=== PATIENT | female | born 1960 | race Two or more races ===

== ENCOUNTER 2017-03-03 11:27 | Emergency (ER) | payer MEDICAID ==
[~2017-03-03] VITALS: Ht 167.6 cm; Wt 97.5 kg
[2017-03-03] MEDS ORDERED: ONDANSETRON HCL/PF 4 MG/2 ML VIAL ONE (12:06)
[2017-03-03] MEDS ORDERED: MORPHINE SULFATE INJ 4 MG/ML DISP.SYRIN ONE ×2 (12:08→13:01)
--- NOTE | 2017-03-03 12:29 | NUR ---
PT REC'D TO ER C/I PAIN LEFT SHOULDER FELL ASCHOOL FAMILY WITH PATIEN LABS AND IV DONE RT AC 20G IVP MEDS GIVEN PER MD ORDER AWAITING EVALUATION BY ER PROVIDER.
[2017-03-03] MEDS ORDERED: ONDANSETRON HCL/PF - ER 4 MG/2 ML VIAL IV ONE (12:30)
[2017-03-03] MEDS ORDERED: MORPHINE SULFATE INJ 2 MG/ML DISP.SYRIN IV ONE ×2 (12:30→13:00)
--- NOTE | 2017-03-03 13:39 | NUR ---
IV removed. Catheter intact and site benign. Pressure and 4x4 applied to site. No bleeding noted.PT. VERBALIZED UNDERSTANDING OF AFTERCARE INSTRUCTIONS.
[2017-03-03] MEDS ORDERED: oxyCODONE/APAP (5/325 MG) 1 UDTAB TABLET ONE (13:41)
[2017-03-03] MEDS ORDERED: IBUPROFEN 600 MG TABLET PO ONE ×2 (13:41→14:00)
[2017-03-03 13:58] VITALS: BP 125/74
[2017-03-03] MEDS ORDERED: oxyCODONE/APAP (5/325 MG) 1 UDTAB TABLET PO ONE (14:00)
== END 2017-03-03 14:00 | disposition home or self-care (01) ==
LOC: ER 11:30
DX: S42.292A Other displaced fracture of upper end of left humerus, initial encounter for closed fracture (principal); E11.9 Type 2 diabetes mellitus without complications; I10 Essential (primary) hypertension; W01.0XXA Fall on same level from slipping, tripping and stumbling without subsequent striking against object, initial encounter; Y92.89 Other specified places as the place of occurrence of the external cause; Y93.89 Activity, other specified; Y99.8 Other external cause status
CPT/HCPCS: 73030-TC; 73060-TC; A4606; J2270; J2405; Z7610

== ENCOUNTER 2022-08-26 19:03 | Inpatient (IN) | payer MEDICAID, OTHER ==
[~2022-08-26] VITALS: Ht 154.9 cm; Wt 73.9 kg
[2022-08-26 21:10] LABS: BASOPHILS # (AUTO) 0.1 K/uL (0.0-0.2); BASOPHILS % (AUTO) 0.9 % (0.0-2.0); HEMATOCRIT 33 % (33-45); HEMOGLOBIN 10.6 g/dL (11.5-14.8); LYMPHOCYTES # (AUTO) 4.2 K/uL (0.8-4.8); LYMPHOCYTES % (AUTO) 29.8 % (20.0-44.0); MEAN CORPUSCULAR HGB CONC 32 g/dl (31.0-36.0); MEAN CORPUSCULAR VOLUME 89 fL (82-100); MONOCYTES # (AUTO) 0.9 K/uL (0.1-1.30); MONOCYTES % (AUTO) 6.5 % (2.0-12.0); NEUTROPHILS # (AUTO) 8.5 K/uL (1.8-8.9); NEUTROPHILS % (AUTO) 60.8 % (43.0-81.0); PLATELET COUNT (AUTO) 293 K/uL (150-450); WHITE BLOOD COUNT (AUTO) 14.1 K/uL (4.3-11.0)
--- NOTE | 2022-08-26 21:12 | NUR ---
URINE COLLECTED AND SENT TO LAB
[2022-08-26] MEDS ORDERED: MORPHINE SULFATE INJ 4 MG/ML DISP.SYRIN ONE (21:17)
[2022-08-26] MEDS ORDERED: CEFTRIAXONE 1GM BAG (ER ONLY) 50 ML IV ONE (21:17)
[2022-08-26] MEDS ORDERED: METRONIDAZOLE 500MG/ NS 100ML 100 ML IV ONE (21:17)
[2022-08-26] MEDS ORDERED: ONDANSETRON HCL/PF 4 MG/2 ML VIAL ONE (21:17)
[2022-08-26 21:23] LABS: BILIRUBIN,URINE NEGATIVE (NEGATIVE); COLOR,URINE YELLOW (YELLOW); LEUKOCYTE ESTERASE ,URINE TRACE (NEGATIVE); NITRITE, URINE NEGATIVE (NEGATIVE); PROTEIN,URINE 2+ mg/dl (NEGATIVE); UGLUCOSE 3+ mg/dL (NEGATIVE); UROBILINOGEN,URINE 0.2 EU/dL (0.2)
[2022-08-26 21:28] LABS: ALANINE AMINOTRANSFERASE 30 U/L (12-78); ALKALINE PHOSPHATASE 114 U/L (46-116); ASPARTATE AMINOTRANSFERASE 22 U/L (15-37); BILIRUBIN,DIRECT 0.1 mg/dL (0.0-0.2); BILIRUBIN,TOTAL 0.3 mg/dL (0.2-1.0); CALCIUM, SERUM 9.5 mg/dL (8.5-10.1); CARBON DIOXIDE 21 mmol/L (21-32); CHLORIDE 105 mmol/L (98-107); CREATININE 1.9 mg/dL (0.6-1.3); GLUCOSE 160 mg/dL (74-106); LIPASE 345 U/L (73-393); POTASSIUM 4.8 mmol/L (3.5-5.1); SODIUM SERUM 138 mmol/L (136-145); TOTAL PROTEIN, SERUM 8.5 g/dL (6.4-8.2); UREA NITROGEN, BLOOD 45 mg/dL (7-18)
[2022-08-26] MEDS ORDERED: MORPHINE SULFATE INJ 2 MG/ML DISP.SYRIN IV ONE (21:30)
[2022-08-26] MEDS ORDERED: METRONIDAZOLE 500MG/ NS 100ML 500 MG in PREMIX 1 EA IV ONE (21:30)
[2022-08-26] MEDS ORDERED: CEFTRIAXONE 1GM BAG (ER ONLY) 1 GM/50 ML PIGGYBACK IV ONE (21:30)
[2022-08-26] MEDS ORDERED: ONDANSETRON HCL/PF 4 MG/2 ML VIAL IV ONE (21:30)
[2022-08-26] MEDS ORDERED: IV NS 0.9% 1,000 ML IV ONE (21:30)
[2022-08-26 22:13] LABS: BACTERIA,URINE 1+ /HPF (None Seen); RBC,URINE 0-2 /HPF (0-2); SQUAMOUS EPITHELIAL CELL,UR Few /HPF (None Seen); WBC,URINE 51-80 /HPF (0-3)
--- NOTE | 2022-08-26 22:17 | NUR ---
MANDY CUI DNP AT PT'S BEDSIDE FOR HALLEAL
[2022-08-26] MEDS ORDERED: DEXTROSE 50%-WATER 50 ML DISP.SYRIN IV PRN (23:00)
[2022-08-26] MEDS ORDERED: Z GUARD REMEDY 4 OZ OINT TP PRN (23:00)
[2022-08-26] MEDS ORDERED: LORAZEPAM INJ 2 MG/ML VIAL IV PRN (23:00)
[2022-08-26] MEDS ORDERED: IV NS 0.9% 1,000 ML IV PRN (23:00)
[2022-08-26] MEDS ORDERED: ONDANSETRON HCL/PF 4 MG/2 ML VIAL IVP PRN (23:00)
[2022-08-26] MEDS ORDERED: MAG HYDROX/AL HYDROX/SIMETH 30 ML UDC PO PRN (23:00)
[2022-08-26] MEDS ORDERED: MAGNESIUM HYDROXIDE 30 ML UDC PO PRN (23:00)
[2022-08-26] MEDS ORDERED: ZOSYN IVPB 3.375 G in IV D5W 50ml IV ONE (23:30)
--- NOTE | 2022-08-26 23:49 | NUR ---
Tony manrique in [facility] - 08/26/22 at 2350 by LEONARDO REPORT GIVEN TO FLORECITA BRONSON
--- NOTE | 2022-08-26 23:50 | NUR ---
report given to angela salamanca
--- NOTE | 2022-08-27 00:11 | NUR ---
US TECH AT PT'S BEDSIDE
--- NOTE | 2022-08-27 00:13 | NUR ---
PT TRANSFERRING TO [facility] VIA HOSPITAL PROTOCOL. VSS. ALL BELONGINGS WITH PT
[2022-08-27] MEDS ORDERED: PIPERACILLIN /TAZOBACTAM 3.375 G VIAL IV ONE (00:53)
[2022-08-27] MEDS: BLOOD SUGAR DIAGNOSTIC 1 EACH STRIP IN SCH ×5 (00:59→23:31)
--- NOTE | 2022-08-27 01:00 | NUR ---
MS TRAVERTINE INSTALLER NOTE RECEIVED REPORT FROM NUCLEAR RADIOLOGIST KENNEDY. PATIENT WAS BROUGHT TO THE UNIT AT AROUND 0020 VIA STRETCHER, ACCOMPANIED BY ER STAFF. PATIENT IS ALERT AND ORIENTED X3, SLOVENIAN SPEAKING BUT CAN UNDERSTAND GREEK. ABLE TO MAKE NEEDS KNOWN. AFEBRILE AND NOT IN ANY FORM OF ACUTE DISTRESS. PATIENT WAS BROUGHT TO THE HOSPITAL D/T ABDOMINAL PAIN 12/02 THAT STARTED 6 DAYS ART DISPLAY MAKER. DIRECTED TO RM. 325-2. EXPLAINED THE ADMISSION PROCESS TO THE PATIENT INCLUDING SKIN ASSESSMENT WHICH THE PATIENT AGREED. PATIENT HAS IV ACCESS ON LAC 20G-SL. UPON INSPECTION, PATIENT WAS NOTED WITH DISCOLORATION ON R FOREARM AND R LOWER ABDOMEN BUT OVERALL, SKIN IS INTACT. BELONGINGS AND VALUABLES WERE PROPERLY CHECKED AND DOCUMENTED BY ASSIGNED STAFF. STARTED IV HYDRATION OF NS AT 75ML/HR. MEDICATED ORDERED. ON IV ATB, MONITORED FOR ANY ADVERSE REACTION. SAFETY MEASURES IN PLACE. KEPT BED IN LOCKED AND IN LOW POSITION. SIDE RAILS UP X2. ADVISED TO USE THE CALL LIGHT WHEN IN NEED OF ASSISTANCE.
[2022-08-27 02:50] VITALS: BP 146/71
[2022-08-27 06:29] LABS: BASOPHILS # (AUTO) 0.1 K/uL (0.0-0.2); BASOPHILS % (AUTO) 0.9 % (0.0-2.0); EOSINOPHILS % (AUTO) 2.5 % (0.0-6.0); HEMATOCRIT 30 % (33-45); HEMOGLOBIN 9.6 g/dL (11.5-14.8); LYMPHOCYTES # (AUTO) 4.7 K/uL (0.8-4.8); LYMPHOCYTES % (AUTO) 39.6 % (20.0-44.0); MEAN CORPUSCULAR HGB CONC 32 g/dl (31.0-36.0); MEAN CORPUSCULAR VOLUME 90 fL (82-100); MONOCYTES # (AUTO) 0.9 K/uL (0.1-1.30); MONOCYTES % (AUTO) 7.4 % (2.0-12.0); NEUTROPHILS # (AUTO) 5.9 K/uL (1.8-8.9); NEUTROPHILS % (AUTO) 49.6 % (43.0-81.0); PLATELET COUNT (AUTO) 251 K/uL (150-450); RED BLOOD CELL COUNT(AUTO) 3.32 MIL/uL (4.0-5.2); WHITE BLOOD COUNT (AUTO) 11.8 K/uL (4.3-11.0)
--- NOTE | 2022-08-27 06:30 | NUR ---
MS RN CLOSING NOTE PATIENT IN BED, WITH HOB ELEVATED, ASLEEP BUT EASY TO AROUSE AND RESPONSIVE. AFEBRILE AND NOT IN ANY FORM OF ACUTE DISTRESS. BREATHING EVEN AND NON LABORED. LUNG SOUND CLEAR ON AUSCULTATION. WITH IV ACCESS ON LAC 20G RUNNING WITH NS AT 75ML/HR. MONITORED FOR ANY S/SX. OF HYPO/HYPERGLYCEMIA. MEDICATED ORDERED. ON IV ATB, MONITORED FOR ANY ADVERSE REACTION. MAINTAINED ON NPO ORDERED. SAFETY MEASURES IN PLACE. KEPT BED IN LOCKED AND IN LOW POSITION. SIDE RAILS UP X2. ADVISED TO USE THE CALL LIGHT WHEN IN NEED OF ASSISTANCE. ALL NURSING NEEDS ATTENDED. ENDORSED TO INCOMING SHIFT FOR CONTINUITY OF CARE.
[2022-08-27 06:50] LABS: CALCIUM, SERUM 9.3 mg/dL (8.5-10.1); CREATININE 1.9 mg/dL (0.6-1.3); MAGNESIUM 2.1 mg/dL (1.8-2.4); PHOSPHORUS 5.7 mg/dL (2.5-4.9); POTASSIUM 4.8 mmol/L (3.5-5.1)
[2022-08-27 06:53] LABS: THYROID STIMULATING HORMONE 5.726 uIU/mL (0.358-3.74)
--- NOTE | 2022-08-27 07:48 | NUR ---
MS RN OPENING NOTE Patient in bed, asleep. A/O x 3, Wolof speaking. On room air, breathing evenly and unlabored. No SOB or s/s of distress noted. IV access on LAC #20 infusing NS @ 75 ml/hr. Patient kept NPO at this time. Safety precautions in place: bed in low, locked position; siderails up x 2; call light within reach. Will continue to monitor.
[2022-08-27 08:00] VITALS: BP 130/77
[2022-08-27] MEDS ORDERED: AMLO-213 PO (08:09)
[2022-08-27] MEDS ORDERED: METF-881 PO (08:09)
[2022-08-27] MEDS ORDERED: OLME1TAB22 PO (08:09)
[2022-08-27] MEDS ORDERED: HYDR-4076 PO (08:09)
[2022-08-27] MEDS ORDERED: FURO-144 PO (08:09)
[2022-08-27] MEDS ORDERED: LEVO-146 PO (08:09)
[2022-08-27] MEDS ORDERED: INSU100I26 SQ (08:09)
[2022-08-27] MEDS ORDERED: ATOR40TA PO (08:09)
[2022-08-27] MEDS ORDERED: DEXL60CA3 PO (08:09)
[2022-08-27] MEDS ORDERED: CARV12.52 PO (08:09)
[2022-08-27] MEDS ORDERED: INSU100I4 SQ (08:09)
[2022-08-27] MEDS ORDERED: FENO200C PO (08:09)
[2022-08-27] MEDS ORDERED: EMPA10TA PO (08:09)
[2022-08-27] MEDS ORDERED: SITA100T PO (08:09)
[2022-08-27] MEDS ORDERED: FERR325T23 PO (08:09)
[2022-08-27] MEDS: PIPERACILLIN /TAZOBACTAM 3.375 G in IV D5W 50 ML IV SCH ×4 (08:51→23:21)
[2022-08-27] MEDS ORDERED: PANTOPRAZOLE 40 MG TABLET.DR PO PRN (09:00)
[2022-08-27] MEDS ORDERED: hydrALAZINE HCL 25 MG TABLET PO PRN (09:00)
[2022-08-27] MEDS: HEPARIN SODIUM, PORCINE 5000 UNITS/1 ML VIAL SQ SCH ×2 (09:00→20:27)
[2022-08-27] MEDS ORDERED: LEVOTHYROXINE SODIUM 50 MCG TABLET PO SCH (09:00)
[2022-08-27] MEDS: ATORVASTATIN 40 MG TABLET PO SCH (09:00)
[2022-08-27] MEDS: CARVEDILOL 12.5 MG TABLET PO SCH ×2 (09:00→16:46)
[2022-08-27] MEDS: LINAGLIPTIN 5 MG TABLET PO SCH (09:00)
[2022-08-27] MEDS: AMLODIPINE BESYLATE 10 MG TABLET PO SCH ×2 (09:00→21:22)
[2022-08-27] MEDS ORDERED: Medication Not On Formulary EA (Empagliflozin (Jardiance) 10 MG) PO SCH (09:00)
[2022-08-27 09:13] LABS: THYROID STIMULATING HORMONE 5.648 uIU/mL (0.358-3.74)
[2022-08-27] MEDS: PANTOPRAZOLE 40 MG VIAL IV SCH (09:13)
[2022-08-27] MEDS ORDERED: ANESTHESIA TRAY IN PYXIS 1 EA TRAY MC ONE (11:27)
[2022-08-27] MEDS ORDERED: BUPIVACAINE 0.5 % PF 150 MG/30 ML VIAL ONE (11:27)
--- NOTE | 2022-08-27 11:31 | NUR ---
RN NOTE Patient wheeled to OR for surgery.
[2022-08-27] MEDS ORDERED: FENTANYL PF 100MCG/2ML AMPUL ONE (12:01)
[2022-08-27] MEDS ORDERED: LABETALOL HCL IV 100MG VIAL ONE (12:01)
[2022-08-27] MEDS ORDERED: FAMOTIDINE/PF INJ 20 MG/2 ML VIAL IV ONE (12:01)
[2022-08-27] MEDS ORDERED: BUPIVACAINE 0.25% 75 MG/30 ML VIAL ONE (12:02)
--- NOTE | 2022-08-27 14:30 | NUR ---
RN NOTE Patient brought back to room from OR. Patient is S/P Lap Mayra, with 4 incision sites with surgical dressing, c/d/i. Stable with VS as follows: BP 138/81, HR 87, RR 16, Temp 98.2, SPO2 95%. Patient denies any pain at incision sites at this time. Complains of headache, PRN Tylenol 650 mg given. Will continue to monitor.
[2022-08-27] MEDS: ACETAMINOPHEN 325 MG TABLET PO PRN ×2 (14:33→23:38)
[2022-08-27] MEDS: IV NS 0.9% 1,000 ML IV PRN (14:41)
--- NOTE | 2022-08-27 14:45 | NUR ---
RN NOTE Patient remains stable with VS as follows: BP 140/80, HR 85, RR 18, Temp 98, SPO2 95%. Surgical dressings c/d/i. Will continue to monitor.
--- NOTE | 2022-08-27 15:00 | NUR ---
RN NOTE Patient remains stable with VS as follows: BP 141/81, HR 71, RR 18, Temp 97.6, SPO2 95%. Surgical dressings c/d/i. Will continue to monitor.
--- NOTE | 2022-08-27 15:15 | NUR ---
RN NOTE Patient remains stable with VS as follows: BP 139/90, HR 80, RR 18, Temp 97.9, SPO2 94%. Surgical dressings c/d/i. Will continue to monitor.
--- NOTE | 2022-08-27 15:30 | NUR ---
RN NOTE Patient remains stable with VS as follows: BP 138/93, HR 82, RR 18, Temp 98, SPO2 93%. Surgical dressings c/d/i. Will continue to monitor.
[2022-08-27] MEDS: INSULIN REGULAR, HUMAN 100 UNIT/ML 3 ML VIAL SQ PRN ×2 (16:47→23:37)
--- NOTE | 2022-08-27 18:56 | NUR ---
MS RN CLOSING NOTE Patient in bed, resting. A/O x 3, Guinean speaking. Stable on room air, breathing evenly and unlabored. No SOB or s/s of distress noted. IV access on LAC #20 infusing NS @ 125 ml/hr. Surgical dressings on abdomen are c/d/i. Due meds given. All needs attended to. Safety precautions in place: bed in low, locked position; siderails up x 2; call light within reach. Will endorse to closing manager nurse for MIGUEL.
[2022-08-27 19:25] LABS: BILIRUBIN,URINE NEGATIVE (NEGATIVE); COLOR,URINE YELLOW (YELLOW); LEUKOCYTE ESTERASE ,URINE NEGATIVE (NEGATIVE); NITRITE, URINE NEGATIVE (NEGATIVE); PH,URINE 5.5 (5.0-8.0); PROTEIN,URINE 2+ mg/dl (NEGATIVE); UGLUCOSE 2+ mg/dL (NEGATIVE); UROBILINOGEN,URINE 0.2 EU/dL (0.2)
--- NOTE | 2022-08-27 19:30 | NUR ---
MS RN OPENING NOTE RECEIVED PATIENT FROM AM NURSE; PATIENT IS ALERT AND ORIENTED X 3, [place] VERDEAN SPEAKING BUT CAN UNDERSTAND MONGOLIAN, WITH FAMILY AT BEDSIDE; STABLE ON ROOM AIR, BREATHING EVENLY AND TOLERATING WELL; NO CARDIAC AND RESPIRATORY DISTRESS NOTED; WITH IV ACCESS ON LAC G#20 WITH NORMAL SALINE INFUSING WELL AT 125 ML/HR; SURGICAL DRESSINGS NOTED ON ADBDOMEN C/D/I; NO COMPLAINTS OF PAIN AND DISCOMFORT AT THIS TIME; SAFETY MEASURES IMPLEMENTED, BED IN LOW ANDLOCKED POSITON, SIDE RAILS UP X 2, CALL LIGHT WITHIN REACH; WILL CONTINUE TO MONITOR
[2022-08-27 19:31] LABS: BACTERIA,URINE None seen /HPF (None Seen); RBC,URINE 0-2 /HPF (0-2); WBC,URINE 0-2 /HPF (0-3)
[2022-08-27 19:42] LABS: CREATININE, URINE 41.1 MG/DL (30.0-125.0)
[2022-08-27 20:16] VITALS: BP 144/69
--- NOTE | 2022-08-27 23:40 | NUR ---
MS RN NOTE PATIENT COMPLAINED OF PAIN ON THE SURGICAL SITE AND INSISTED ON TAKING TYLENOL INSTEAD OF MORPHINE. ADMINISTERED TYLENOL PRN ORDERED. WILL CONTINUE TO MONITOR
--- NOTE | 2022-08-27 23:54 | NUR ---
MS RN NOTE ACCUCHECK WAS DONE AND PATIENT'S BLOOD SUGAR WAS 196. ADMINISTERED 3 UNITS OF INSULIN PER SLIDING SCALE. WILL CONTINUE TO MONITOR
[2022-08-28] MEDS: IV NS 0.9% 1,000 ML IV PRN ×2 (02:13→12:20)
[2022-08-28] MEDS: BLOOD SUGAR DIAGNOSTIC 1 EACH STRIP IN SCH ×3 (05:42→17:07)
[2022-08-28] MEDS: INSULIN REGULAR, HUMAN 100 UNIT/ML 3 ML VIAL SQ PRN ×2 (05:46→11:23)
[2022-08-28] MEDS: MORPHINE SULFATE INJ 2 MG/ML DISP.SYRIN IV PRN ×2 (05:47→22:12)
[2022-08-28] MEDS: PIPERACILLIN /TAZOBACTAM 3.375 G in IV D5W 50 ML IV SCH ×3 (05:54→17:07)
[2022-08-28 06:13] LABS: BASOPHILS # (AUTO) 0.1 K/uL (0.0-0.2); BASOPHILS % (AUTO) 0.6 % (0.0-2.0); EOSINOPHILS % (AUTO) 0.1 % (0.0-6.0); HEMATOCRIT 28 % (33-45); HEMOGLOBIN 8.9 g/dL (11.5-14.8); LYMPHOCYTES # (AUTO) 2.7 K/uL (0.8-4.8); LYMPHOCYTES % (AUTO) 19.3 % (20.0-44.0); MEAN CORPUSCULAR HGB CONC 32 g/dl (31.0-36.0); MEAN CORPUSCULAR VOLUME 90 fL (82-100); MONOCYTES # (AUTO) 0.8 K/uL (0.1-1.30); MONOCYTES % (AUTO) 6.1 % (2.0-12.0); NEUTROPHILS # (AUTO) 10.3 K/uL (1.8-8.9); NEUTROPHILS % (AUTO) 73.9 % (43.0-81.0); PLATELET COUNT (AUTO) 226 K/uL (150-450); RED BLOOD CELL COUNT(AUTO) 3.09 MIL/uL (4.0-5.2); WHITE BLOOD COUNT (AUTO) 13.9 K/uL (4.3-11.0)
--- NOTE | 2022-08-28 06:20 | NUR ---
MS RN NOTE PATIENT COMPLAINED OF PAIN WITH A SCORE OF 9/10. ADMINISTERED MORPHINE PRN ORDERED. PATIENT VERBALIZED DECREASE IN PAIN AND CUREENTLY IN BETTER CONDITION. WILL CONTINUE TO MONITOR
[2022-08-28 06:32] LABS: ALBUMIN 3.1 g/dL (3.4-5.0); BILIRUBIN,TOTAL 0.4 mg/dL (0.2-1.0); CALCIUM, SERUM 8.8 mg/dL (8.5-10.1); CREATININE 2.2 mg/dL (0.6-1.3); MAGNESIUM 1.8 mg/dL (1.8-2.4); PHOSPHORUS 4.6 mg/dL (2.5-4.9); POTASSIUM 5.1 mmol/L (3.5-5.1); TOTAL PROTEIN, SERUM 6.8 g/dL (6.4-8.2)
--- NOTE | 2022-08-28 06:48 | NUR ---
MS RN CLOSING NOTE PATIENT IS ALERT AND ORIENTED X 3, SERBIAN SPEAKING BUT CAN UNDERSTAND KOREAN, WITH FAMILY AT BEDSIDE; STABLE ON ROOM AIR, BREATHING EVENLY AND TOLERATING WELL; NO CARDIAC AND RESPIRATORY DISTRESS NOTED; WITH IV ACCESS ON LAC G#20 WITH NORMAL SALINE INFUSING WELL AT 125 ML/HR; SURGICAL DRESSINGS NOTED ON ABDOMEN C/D/I; NO COMPLAINTS OF PAIN AND DISCOMFORT AT THIS TIME; ADMINISTERED MEDICATIONS PRESCRIBED; PATIENT'S NEEDS ATTENDED; MONITORED PATIENT ACCORDINGLY; SAFETY MEASURES IMPLEMENTED, BED IN LOW ANDLOCKED POSITON, SIDE RAILS UP X 2, CALL LIGHT WITHIN REACH; WILL ENDORSE TO AM NURSE FOR MIGUEL
[2022-08-28 07:00] VITALS: BP 116/66
--- NOTE | 2022-08-28 07:45 | NUR ---
MS RN OPENING NOTE Patient in bed, awake. A/O x 3, Cymraes speaking. On room air, breathing evenly and unlabored. No SOB or s/s of distress noted. IV access on LAC #20 infusing NS @ 125 ml/hr. Surgical dressings on abdomen c/d/i. Denies any discomfort at this time. Patient reports she she already passed gas. Safety precautions in place: bed in low, locked position; siderails up x 2; call light within reach. Will continue to monitor.
[2022-08-28] MEDS: PANTOPRAZOLE 40 MG VIAL IV SCH (08:24)
[2022-08-28] MEDS: ATORVASTATIN 40 MG TABLET PO SCH (08:24)
[2022-08-28] MEDS: LINAGLIPTIN 5 MG TABLET PO SCH (08:24)
[2022-08-28] MEDS: LEVOTHYROXINE SODIUM 75 MCG TABLET PO SCH (08:24)
[2022-08-28] MEDS: CARVEDILOL 12.5 MG TABLET PO SCH ×2 (08:25→17:06)
[2022-08-28] MEDS ORDERED: EMPAGLIFLOZIN 25 MG TABLET PO SCH (09:00)
[2022-08-28] MEDS: HEPARIN SODIUM, PORCINE 5000 UNITS/1 ML VIAL SQ SCH ×2 (10:01→20:50)
[2022-08-28 11:07] LABS: *ANA ANTI-CENTROMERE B AB <0.2 AI (0.0-0.9); *ANA ANTI-DNA(DS) AB, QN 1 IU/mL (0-9); *ANA ANTI-JO-1 <0.2 AI (0.0-0.9); *ANA ANTICHROMATIN ANTIBODY <0.2 AI (0.0-0.9); *ANA RNP ANTIBODIES 0.2 AI (0.0-0.9); *ANA SJOGREN'S ANTI-SS-A <0.2 AI (0.0-0.9); *ANA SJOGREN'S ANTI-SS-B <0.2 AI (0.0-0.9); *ANAANTI-SCLERODERMA-70 AB <0.2 AI (0.0-0.9); *ANASMITH AB <0.2 AI (0.0-0.9)
[2022-08-28] MEDS: FENOFIBRATE NANOCRYS (145 MG) 145 MG TABLET PO SCH (11:17)
[2022-08-28 16:00] VITALS: BP 114/60
[2022-08-28] MEDS: ACETAMINOPHEN 325 MG TABLET PO PRN (17:45)
--- NOTE | 2022-08-28 18:15 | NUR ---
RN NOTE Patient's family brought Jardiance 10 mg medication, brought to pharmacy.
--- NOTE | 2022-08-28 18:50 | NUR ---
MS RN CLOSING NOTE Patient in bed, resting. A/O x 3, Malawian speaking. Stable on room air, breathing evenly and unlabored. No SOB or s/s of distress noted. IV access on LAC #20 infusing NS @ 75 ml/hr. Surgical dressings on abdomen are c/d/i. Due meds given. All needs attended to. Patient complained of headache earlier, Tylenol 650 mg PRN given. Patient reports relief from headache. Patient is able to ambulate with assistance to the bathroom. Safety precautions in place: bed in low, locked position; siderails up x 2; call light within reach. Will endorse to overnight stocker nurse for MIGUEL.
--- NOTE | 2022-08-28 19:30 | NUR ---
MS PERFORMANCE INSTRUCTOR INITIAL NOTES RECEIVED REPORT FROM AM NURSE AND SEEN PATIENT LYING IN BED WITH HER FAMILY AT THE BEDSIDE . SHE IS ALERT AND ORIENTED X 3, DANISH SPEAKING BUT CAN UNDERSTAND [place], STABLE ON ROOM AIR, BREATHING EVENLY AND TOLERATING WELL; NO CARDIAC AND RESPIRATORY DISTRESS NOTED; WITH IV ACCESS ON LAC G#20 WITH NORMAL SALINE INFUSING WELL AT 75 ML/HR; SURGICAL DRESSINGS NOTED ON ABDOMEN C/D/I; NO COMPLAINTS OF PAIN AND DISCOMFORT AT THIS TIME; SAFETY MEASURES IMPLEMENTED, BED IN LOW AND LOCKED POSITION, SIDE RAILS UP X 2, CALL LIGHT WITHIN REACH; WILL CONTINUE TO MONITOR.
[2022-08-28 20:00] VITALS: BP 141/73
--- NOTE | 2022-08-28 20:00 | NUR ---
MS JAE NOTES PATIENT CALLED AND COMPLAINING OF DRY COUGH, UNABLE TO CHECK O2 BECAUSE PT HAS GEL MANICURE ON HER BOTH FINGERS RE-CHECK USING THE EAR HI IT CAME OUT 90-93 % % , ADMINISTERED O2 AT 2 LITERS AT THIS TIME. RESPIRATORY AT THE BEDSIDE HELPED TO ASSESS THE PT WELL. NOTIFY RAILWAY SWITCHMAN MD FOR COUGH MEDICINE.
--- NOTE | 2022-08-28 20:18 | NUR ---
MS JAE NOTES GOT ORDERED ROBITUSSIN DM FOR COUGH NOTED AND CARRIED OUT. NOTIFY PHARMACY FOR VERIFICATION.
[2022-08-28] MEDS ORDERED: GUAIFENESIN/D-METHORPHAN HB 5 ML UDC PO PRN (20:30)
[2022-08-28] MEDS: AMLODIPINE BESYLATE 10 MG TABLET PO SCH (22:09)
--- NOTE | 2022-08-29 | NUR ---
MS COST COORDINATOR NOTES Checked pt she's sleeping at this time but arouse easily , blood sugar checked done, 154, 2 units of insulin given destiny SQ as ordered. No signs of any Hypo/Hyper glycemia noted at this time. refused to have snack Zosyn IVP bag hung by another nurse as ordered. Kept her warm and comfortable at all times.
[2022-08-29] MEDS: BLOOD SUGAR DIAGNOSTIC 1 EACH STRIP IN SCH ×2 (00:17→06:15)
[2022-08-29] MEDS: INSULIN REGULAR, HUMAN 100 UNIT/ML 3 ML VIAL SQ PRN ×2 (00:19→06:21)
[2022-08-29] MEDS: PIPERACILLIN /TAZOBACTAM 3.375 G in IV D5W 50 ML IV SCH ×2 (00:28→06:13)
[2022-08-29] MEDS: ACETAMINOPHEN 325 MG TABLET PO PRN (01:06)
[2022-08-29] MEDS: IV NS 0.9% 1,000 ML IV PRN (04:59)
--- NOTE | 2022-08-29 06:22 | NUR ---
ms metal riveter notes blood sugar 111, no insulin due at this time.
[2022-08-29 06:38] LABS: BASOPHILS # (AUTO) 0.1 K/uL (0.0-0.2); BASOPHILS % (AUTO) 0.6 % (0.0-2.0); EOSINOPHILS % (AUTO) 1.7 % (0.0-6.0); HEMATOCRIT 26 % (33-45); HEMOGLOBIN 8.3 g/dL (11.5-14.8); LYMPHOCYTES # (AUTO) 5.4 K/uL (0.8-4.8); LYMPHOCYTES % (AUTO) 36.7 % (20.0-44.0); MEAN CORPUSCULAR HGB CONC 32 g/dl (31.0-36.0); MEAN CORPUSCULAR VOLUME 90 fL (82-100); MONOCYTES % (AUTO) 6.4 % (2.0-12.0); NEUTROPHILS # (AUTO) 8.1 K/uL (1.8-8.9); NEUTROPHILS % (AUTO) 54.6 % (43.0-81.0); PLATELET COUNT (AUTO) 226 K/uL (150-450); RED BLOOD CELL COUNT(AUTO) 2.87 MIL/uL (4.0-5.2); WHITE BLOOD COUNT (AUTO) 14.8 K/uL (4.3-11.0)
[2022-08-29 07:00] VITALS: BP 134/68
[2022-08-29 07:12] LABS: CALCIUM, SERUM 8.9 mg/dL (8.5-10.1); CREATININE 2.1 mg/dL (0.6-1.3); POTASSIUM 4.8 mmol/L (3.5-5.1)
--- NOTE | 2022-08-29 07:30 | NUR ---
MS RN OPENING NOTES RECEIVED PATIENT LYING IN BED, AWAKE . SHE IS ALERT AND ORIENTED X 4, SERBIAN SPEAKING BUT CAN UNDERSTAND CYMRAES, STABLE ON ROOM AIR, NO SOB OR DISTRESS NOTED ; NO C/O OF PAIN AND DISCOMFORT ; WITH IV ACCESS ON LAC G#20 WITH NORMAL SALINE INFUSING WELL AT 75 ML/HR; SURGICAL DRESSINGS NOTED ON ABDOMEN C/D/I ; SAFETY MEASURES IMPLEMENTED, BED IN LOW AND LOCKED POSITION, SIDE RAILS UP X 2, CALL LIGHT WITHIN REACH; WILL CONTINUE TO MONITOR.
--- NOTE | 2022-08-29 07:36 | NUR ---
MS DEVELOPMENT TECHNOLOGIST CLOSING NOTES PT RESTING AT THIS TIME BUT AROUSE EASILY. DENIES ANY PAIN OR ANY DISCOMFORT AT THIS TIME. IVF STILL INFUSING. SEEN BY DR BRADLEY . ALL DUE MEDS GIVEN AND ALL NEEDS MET. KEPT HER WARM AND COMFORTABLE AT ALL TIMES. SURGERY SITE DRESSINGS DRY AND INTACT. ENDORSE TO AM NURSE FOR CONTINUITY OF CARE. PLACE CALL LIGHT AT REACH.
[2022-08-29] MEDS: LEVOTHYROXINE SODIUM 75 MCG TABLET PO SCH (08:24)
[2022-08-29] MEDS: LINAGLIPTIN 5 MG TABLET PO SCH (08:24)
[2022-08-29] MEDS: FENOFIBRATE NANOCRYS (145 MG) 145 MG TABLET PO SCH (08:24)
[2022-08-29] MEDS: ATORVASTATIN 40 MG TABLET PO SCH (08:24)
[2022-08-29 08:25] VITALS: BP 134/68
[2022-08-29] MEDS: CARVEDILOL 12.5 MG TABLET PO SCH (08:25)
[2022-08-29] MEDS: HEPARIN SODIUM, PORCINE 5000 UNITS/1 ML VIAL SQ SCH (08:26)
[2022-08-29] MEDS ORDERED: PANTOPRAZOLE 40 MG TABLET.DR PO SCH (09:00)
[2022-08-29] MEDS ORDERED: JARDIANCE 10 MG PO SCH (09:00)
[2022-08-29] MEDS ORDERED: ONDA4TAB5 PO (09:59)
[2022-08-29] MEDS ORDERED: PANT40TA2 PO (09:59)
[2022-08-29] MEDS ORDERED: HYDR-3972 PO (09:59)
[2022-08-29] MEDS ORDERED: AMOX-430 PO (09:59)
--- NOTE | 2022-08-29 11:28 | NUR ---
MS CHOCOLATE DIPPER NOTES PATIENT LYING IN BED, AWAKE . SHE IS ALERT AND ORIENTED X 4, GREENLANDIC SPEAKING BUT CAN UNDERSTAND KHMER, STABLE ON ROOM AIR, NO SOB OR DISTRESS NOTED ; NO C/O OF PAIN AND DISCOMFORT ; ALL DUE MEDS GIVEN ORDERED , WAS SEEN BY ANNY GALVAN AND WITH ORDER FOR DISCHARGE TO HOME , DISCHARGE INSTRUCTIONS PROVIDED REGARDING ANTIBIOTIC MEDICATIONS TO CONTINUE AT HOME , FOLLOW UP WITH DR DOUGLAS AND PHONE NUMBER OF [employer] WAS GIVEN AND WHEN TO CALL 911 IN CASE OF EMERGENCY , IV ACCESS WAS AND ID BAND REMOVED , PATIENT UNDERSTOOD INSTRUCTIONS PROVIDED , ALL BELONGINGS WERE BROUGHT AND FORM WAS SIGNED , PATIENT WAS LEAN PROCESS DEPLOYMENT CONSULTANT BY DAUGHTER AND LEFT THE HOSPITAL IN A STABLE CONDITION , ASSISTED TO THE LOBBY AND LEFT VIA PRIVATE CAR WITH THE DAUGHTER
== END 2022-08-29 11:25 | disposition home or self-care (01) | DRG 263 ==
LOC: ER 19:10 → MED 22:30
PROVIDERS: ADMIT Nurse Practitioner Acute Care; ATTEND Nurse Practitioner Acute Care
PROC: 0FT44ZZ Resection of Gallbladder, Percutaneous Endoscopic Approach (ICD-10-PCS; principal; 2022-08-27)
DX: K80.00 Calculus of gallbladder with acute cholecystitis without obstruction (principal); N17.0 Acute kidney failure with tubular necrosis; N39.0 Urinary tract infection, site not specified; E11.22 Type 2 diabetes mellitus with diabetic chronic kidney disease; D72.829 Elevated white blood cell count, unspecified; E03.9 Hypothyroidism, unspecified; B96.89 Other specified bacterial agents as the cause of diseases classified elsewhere; E11.65 Type 2 diabetes mellitus with hyperglycemia; E66.9 Obesity, unspecified; E78.5 Hyperlipidemia, unspecified; K66.0 Peritoneal adhesions (postprocedural) (postinfection); K74.60 Unspecified cirrhosis of liver; I13.10 Hypertensive heart and chronic kidney disease without heart failure, with stage 1 through stage 4 chronic kidney disease, or unspecified chronic kidney disease; I25.10 Atherosclerotic heart disease of native coronary artery without angina pectoris; N18.9 Chronic kidney disease, unspecified; I70.0 Atherosclerosis of aorta; K82.8 Other specified diseases of gallbladder; E86.1 Hypovolemia; Z68.30 Body mass index [BMI] 30.0-30.9, adult
CPT/HCPCS: 36415; 71045-TC; 76705-TC; 76770-TC; 80048-TC; 80053-TC; 80061-TC; 80076-TC; 81001; 82570-TC; 82728-TC; 82962-TC; 83540-TC; 83690-TC; 83735-TC; 84100-TC; 84300-TC; 84439-TC; 84443-TC; 84484-TC; 85025-TC; 86225; 86235; 86706; 86803; 87081-TC; 87086-TC; 88304-TC; 93307-TC; A4216; A4223; C9113; G0378; J0690; J0696; J1100; J1644; J1815; J1885; J2270; J2370; J2405; J2543; J2704; J2765; J3010; J3490; J7030; J7060